=== PATIENT | male | born 1960 | race Caucasian/White ===

== ENCOUNTER 2020-01-21 14:25 | Emergency (ER) | payer SELFPAY ==
--- NOTE | 2020-01-21 15:47 | EDM.PDOC ---
ED HPI GENERAL MEDICAL PROBLEM - General Chief Complaint: General Stated Complaint: MEDICAL CLEARANCE Time Seen by Provider: 01/21/20 15:02 - History of Present Illness INITIAL COMMENTS - FREE TEXT/NARRATIVE: History of present illness: Patient presents with a law enforcement under arrest and then he is here for medical clearance for alf and he has a bunch of prescription medicines that he is out of curiously they are all his controlled substances however he is out of his muscle spasm medicine and his gabapentin I will refill these medications there is no acute complaints at this time. Review of systems: As per history of present illness and below otherwise all systems reviewed and negative. Past medical history: As per history of present illness and as reviewed below otherwise noncontributory. Surgical history: As per history of present illness and as reviewed below otherwise noncontributory. Social history: No reported history of drug or alcohol abuse. Family history: As per history of present illness and as reviewed below otherwise noncontributory. Physical exam: HEENT: Atraumatic, normocephalic, pupils reactive, negative for conjunctival pallor or scleral icterus, mucous membranes moist, throat clear, neck supple, nontender, trachea midline. Lungs: Clear to auscultation, breath sounds equal bilaterally, chest nontender. Heart: S1S2, regular, negative for clicks, rubs, or JVD. Abdomen: Soft, nondistended, nontender. Negative for masses or hepatosplenomegaly. Negative for costovertebral tenderness. Pelvis: Stable nontender. Genitourinary: Deferred. Rectal: Deferred. Extremities: Atraumatic, negative for cords or calf pain. Neurovascular unremarkable. Neuro: Awake, alert, oriented. Cranial nerves II through XII unremarkable. Cerebellum unremarkable. Motor and sensory unremarkable throughout. Exam nonfocal. Diagnostics: [] Therapeutics: [] Impression: [] Plan: [] Definitive disposition and diagnosis as appropriate pending reevaluation and review of above. - Related Data Allergies Allergy/AdvReac Type Severity Reaction Status Date / Time No Known Allergies Allergy Verified 01/21/20 15:01 Home Meds: Home Meds Buprenorphine HCl/Naloxone HCl [Suboxone 4 mg-1 mg Sl Film] 1 each SL DAILY 01/21/20 [History] Gabapentin [Neurontin] 600 mg PO DAILY 01/21/20 [History] Gabapentin [Neurontin] 600 mg PO DAILY #10 tab 01/21/20 [Rx] Lisinopril/Hydrochlorothiazide [Lisinopril-Hctz 20-12.5 mg Tab] 1 each PO DAILY 01/21/20 [History] Tamsulosin [Tamsulosin 24 Hr] 0.4 mg PO DAILY 01/21/20 [History] tiZANidine [Zanaflex] 4 mg PO DAILY 01/21/20 [History] tiZANidine [Zanaflex] 8 mg PO Q8H #30 tab 01/21/20 [Rx] Past Medical History Cardiovascular History: Reports: Hypertension - Infectious Disease History Infectious Disease History: Reports: None - Past Surgical History Other Musculoskeletal Surgeries/Procedures:: bilateral knee pain Social & Family History - Family History Family Medical History: Noncontributory - Tobacco Use Smoking Status *Q: Light Tobacco Smoker Years of Tobacco use: 20 Packs/Tins Daily: 1 - Alcohol Use Days Per Week of Alcohol Use: 7 Number of Drinks Per Day: 3 Total Drinks Per Week: 21 - Recreational Drug Use Recreational Drug Use: Yes Drug Use in Last 12 Months: Yes Recreational Drug Type: Reports: Marijuana/Hashish ED ROS GENERAL - Review of Systems Review Of Systems: See Below ED EXAM, GENERAL - Physical Exam Exam: See Below Course - Vital Signs Text/Narrative:: Patient is medically cleared for incarceration. Last Recorded V/S: Last Vital Signs Temp 36.3 C 01/21/20 15:03 Pulse 64 01/21/20 15:03 Resp 18 01/21/20 15:03 BP 100/62 01/21/20 15:03 Pulse Ox 98 01/21/20 15:03 Departure - Departure Time of Disposition: 15:30 Disposition: DC/Tfer to Court of Law En 21 Condition: Good Clinical Impression: Medication refill, Chronic pain - Discharge Information *PRESCRIPTION DRUG MONITORING PROGRAM REVIEWED*: Not Applicable *COPY OF PRESCRIPTION DRUG MONITORING REPORT IN PATIENT MICHELLE: Not Applicable Prescriptions: Gabapentin [Neurontin] 600 mg PO DAILY #10 tab tiZANidine [Zanaflex] 8 mg PO Q8H #30 tab Instructions: Chronic Pain, Adult Referrals: PCP,Not In Area [Primary Care Provider] - Additional Instructions: The following information is given to patients seen in the emergency department who are being discharged to home. This information is to outline your options for follow-up care. We provide all patients seen in our emergency department with a follow-up referral. The need for follow-up, as well as the timing and circumstances, are variable depending upon the specifics of your emergency department visit. If you don't have a primary care physician on staff, we will provide you with a referral. We always advise you to contact your personal physician following an emergency department visit to inform them of the circumstance of the visit and for follow-up with them and/or the need for any referrals to a consulting specialist. The emergency department will also refer you to a specialist when appropriate. This referral assures that you have the opportunity for follow-up care with a specialist. All of these measure are taken in an effort to provide you with optimal care, which includes your follow-up. Under all circumstances we always encourage you to contact your private physician who remains a resource for coordinating your care. When calling for follow-up care, please make the office aware that this follow-up is from your recent emergency room visit. If for any reason you are refused follow-up, please contact the [facility] Emergency Department at and asked to speak to the emergency department charge nurse [facility] [address] [place] [id number] Sepsis Event Note (ED) - Evaluation Sepsis Screening Result: No Definite Risk - Focused Exam Vital Signs: Vital Signs Temp Pulse Resp BP Pulse Ox 01/21/20 15:03 36.3 C 64 18 100/62 98
== END 2020-01-21 16:15 ==
LOC: MW.ED 14:25
DX: G89.29 Other chronic pain (principal); Z76.0 Encounter for issue of repeat prescription; I10 Essential (primary) hypertension; F17.210 Nicotine dependence, cigarettes, uncomplicated; Z79.899 Other long term (current) drug therapy
CPT/HCPCS: 99282; 99283